=== PATIENT | female | born 2000 ===

== ENCOUNTER 2020-01-02 12:41 | Emergency (ER) | payer MEDICAID ==
[~2020-01-02] VITALS: Ht 160 cm; Wt 87.6 kg
--- NOTE | 2020-01-02 14:25 | NUR ---
Pt to room from [facility], ambulatory with steady gait.
--- NOTE | 2020-01-02 15:15 | NUR ---
UA COLLECTE AND SENT TO THE LAB. PT C/O LEFT UPPER BACK/FLANK PAIN FOR ABOUT 3 DAYS WITH URINARY SYMPTMS OVER 2 WEEKS. LABS DRAWN, WAITING FOR RESULTS. PT IN NAD NOW. PT GIVEN CALL LIGHT AND WARM BLANKETS.
[2020-01-02 15:26] LABS: BASOPHILS # (AUTO) 0.04 x10^3/uL (0-0.3); BASOPHILS % (AUTO) 1 % (0-1); EOSINOPHILS # (AUTO) 0.12 x10^3/uL (0-0.8); EOSINOPHILS % (AUTO) 2 % (1-7); LYMPHOCYTES # (AUTO) 2.38 x10^3/uL (1-6.1); LYMPHOCYTES % (AUTO) 35 % (22-44); MD NO; MEAN CORPUSCULAR HGB CONC 33.4 g/dL (32.4-35.8); MEAN CORPUSCULAR VOLUME 86.8 fL (80-100); MEAN PLATELET VOLUME 7.9 fL (7.4-10.4); MONOCYTES # (AUTO) 0.33 x10^3/uL (0-1.4); MONOCYTES % (AUTO) 5 % (2-9); NEUTROPHILS # (AUTO) 3.96 x10^3/uL (1.8-8.0); NEUTROPHILS % (AUTO) 58 % (42-75); PLATELET COUNT 320 x10^3/uL (130-400); RED BLOOD COUNT 4.96 x10^6/uL (3.82-5.3); RED CELL DISTRIBUTION WIDTH 15.1 % (9.6-15.2)
[2020-01-02 15:28] LABS: MICROSCOPIC AUTO
[2020-01-02 15:36] LABS: ALBUMIN 3.5 g/dL (3.4-5.0); ANION GAP 2 mmol/L (5-15); CALCIUM 9.1 mg/dL (8.5-10.1); CHLORIDE 109 mmol/L (98-107); CREATININE 0.92 mg/dL (0.55-1.02)
[2020-01-02 16:37] VITALS: BP 116/75
--- NOTE | 2020-01-02 16:37 | NUR ---
DR. BENITEZ AT BEDSIDE FOR RECHECK.
== END 2020-01-02 16:46 | disposition home or self-care (01) ==
LOC: ED 15:04
DX: M54.6 Pain in thoracic spine (principal); R30.0 Dysuria; R30.9 Painful micturition, unspecified
CPT/HCPCS: 36415; 80048; 81001; 82040; 84703; 85025; 99283